=== PATIENT | male | born 1950 | race Caucasian/White ===

== ENCOUNTER 2017-01-02 10:30 | Inpatient (IN) | payer MEDICARE, OTHER ==
[2016-12-30 12:04] LABS: BASOPHILS 0.6 %; BASOPHILS ABSOLUTE 0.05 10/3/uL (0.0-0.16); EOSINOPHILS 0.9 %; EOSINOPHILS ABSOLUTE 0.07 10/3/uL (0.0-0.53); HEMOGLOBIN 14.3 g/dL (13.6-17.8); IMMATURE GRANULOCYTES 0.5 %; IMMATURE GRANULOCYTES ABSOLUTE 0.04 10/3/uL (0.0-0.11); LYMPHOCYTES 34.2 %; LYMPHOCYTES ABSOLUTE 2.64 10/3/uL (0.67-4.30); MEAN CORPUSCULAR HEMOGLOB 31.2 pg (26.0-34.0); MEAN CORPUSCULAR VOLUME 91.5 fL (80-100); MEAN PLATELET VOLUME 10.3 fL (9.2-13.0); MONOCYTES 8.4 %; MONOCYTES ABSOLUTE 0.65 10/3/uL (0.21-1.20); NEUTROPHILS 55.4 %; NEUTROPHILS ABSOLUTE 4.27 10/3/uL (2.02-8.40); RBC DISTRIBUTION WIDTH 12.9 % (12.0-16.0); RED CELL COUNT 4.59 10/6/uL (4.7-6.1); WHITE BLOOD CELLS 7.7 10/3/uL (4.5-10.5)
[2016-12-30 12:05] LABS: MANUAL DIFF NO %; PLATELET COUNT 366 10/3/uL (150-400)
[2016-12-30 12:12] LABS: INTERNATIONAL NORMAL RATI 1.1 UNITS (-); PARTIAL THROMBO TIME 28.2 SEC (22.5-37.2); PROTIME (NOT ORD) 14.3 SEC (12.0-14.5)
[2016-12-30 12:25] LABS: ALBUMIN 3.6 G/DL (3.5-5.0); CALCIUM, SERUM 8.9 MG/DL (8.5-10.4); CHLORIDE, SERUM 105 MMOL/L (96-112); GFR AFRICAN AMERICAN 101 ML/MIN (>=60); GFR NON AFRICAN AMERICAN 87 ML/MIN (>=60); GLOBULIN 3.7 G/DL (2.5-4.1); SGOT(AST) 20 U/L (5-40); SGPT(ALT) 26 U/L (5-65); SODIUM, SERUM 140 MMOL/L (135-148); TOTAL BILIRUBIN 0.4 MG/DL (0-1.2); TOTAL PROTEIN 7.3 G/DL (6.0-8.5)
[2016-12-30 12:26] LABS: ALKALINE PHOSPHATASE 139 U/L (45-117); BUN (BLOOD UREA NITROGEN) 16 MG/DL (6-23); CO2 (CARBON DIOXIDE) 25 MMOL/L (24-34); GLUCOSE, SERUM 113 MG/DL (60-99)
[2016-12-30 12:48] LABS: ASCORBIC ACID (UR NOT ORDER) NEG (NEG); BILIRUBIN, URINE NEGATIVE (NEG); KETONE, URINE NEGATIVE (NEG); LEUKOCYTE ESTERASE(NOT OR NEG (NEG); WBC (NOT ORDERED) (RFLEX) < 1 (0-5)
--- NOTE | ~2017-01-02 | OP ---
Record Of Operation [facility] [address] [place]. [address] NAME: YUE SANDOVAL : 46 STATUS : ADM IN PAT#: [id number] AGE: 66 ADM/REG DATE : 01/02/17 MR#: [id number] REPORT SERV DATE: 01/03/17 DICTATED BY: DUSTIN ROSENBERG DATE: 01/02/17 REPORT STATUS : Draft TRANSCRIBED BY: MODL DATE: 01/02/17 DATE OF PROCEDURE: 01/02/2017 PREOPERATIVE DIAGNOSIS: Left severe shoulder osteoarthritis with subacute displaced surgical neck fracture. POSTOPERATIVE DIAGNOSIS: Left severe shoulder osteoarthritis with subacute displaced surgical neck fracture. PROCEDURE: Left reverse shoulder arthroplasty. SURGEON: Dustin Rosenberg M.D. COMPLICATIONS: None. ANESTHESIA: General endotracheal with regional block. ESTIMATED BLOOD LOSS: 200. FLUIDS: 1700. IMPLANTS: Dahiana Bigliani-Flatow reverse. INDICATIONS: This 66-year-old male is known to me from an ORIF of his distal clavicle. He had a shoulder osteoarthritis. The plan was to do a replacement. He ended up falling and fracturing onto his immobile degenerative shoulder with an oblique displaced surgical neck fracture. We discussed options in this difficult situation including nonoperative treatment which has risk of nonunion, ORIF, total versus reverse. We discussed reverse as a possible one-stage procedure. He verbalized understanding and wished to proceed with operative intervention. DESCRIPTION OF PROCEDURE: The patient was induced in supine position. The left upper extremity was prepped and draped in standard surgical fashion. A time-out protocol was enforced. Ancef was administered. The deltopectoral approach was utilized. His tissues were indurated. We dissected through the subcutaneous down to the cephalic vein. This was mobilized laterally. There was severe scarring and edema throughout the shoulder joint. We carefully lysed adhesions in the subdeltoid plane, released the pectoralis. It was difficult to see the biceps because of the amount of the swollen bursa and subacute fracture response, but we were able to find that and soft tissue tenodesed to the pectoralis. We started out with a lesser tuberosity osteotomy with osteotomes and started releasing the capsule. There was some engagement between shaft and the head, so we could rotate the humeral head, but it was quite difficult and this patient had very large bone spurs and osteophytes on the humeral head. We kept rotating that out with Marycarmen's and used rongeurs. We cleaned out the fracture site with an osteotome and rongeurs, and it was clear that it was going to be very difficult to do an Record Of Operation [facility] [address] [place]. [address] NAME: YUE SANDOVAL : 46 STATUS : ADM IN PAT#: [id number] AGE: 66 ADM/REG DATE : 01/02/17 MR#: [id number] REPORT SERV DATE: 01/03/17 DICTATED BY: DUSTIN ROSENBERG DATE: 01/02/17 REPORT STATUS : Draft TRANSCRIBED BY: MODL DATE: 01/02/17 anatomic total in this circumstance, because the reduction was going to be very difficult of this fracture which had partially healed. We decided to go ahead with a reverse because of his age and the comorbidities including diabetes and surgical neck fracture. We made an entry portal in the humeral head and reamed up to a 13. This made the shaft relatively coaxial. We made a 20-degree retroverted cut and trimmed up the osteophytes. We then had to make extra bone cuts to get access to the glenoid just because of simply the large humeral head and multiple bone spurs. We then gained direct access to the glenoid. The glenoid had a huge osteophyte on the 7 o'clock position. We trimmed that down with osteotomes and rongeurs and ascertained the true mechanical axis. We did some inferior capsular release and some incision of the anterior capsule, but we were less aggressive here in the setting of trauma and especially since we had good access to the glenoid. We used the trabecular metal 15 mm base plate after reaming the glenoid flush and impacted a 40 mm glenosphere. We then turned back to the humeral head. We initially placed the 13 press fit and did a trial reduction, but there were bone spurs and pieces of the humeral head that were blocking the reduction, so we had to clean those out and we prepared to fix the tuberosities as in a fracture. We secured those with number two FiberWire in terms with two inverted-U stitches through the greater tuberosity and the subscap. We made drill holes in the shaft. We impacted slightly deeper the prosthesis and then trialed up to a plus six. This had satisfactory stability. We then repaired all the tuberosities in the manner of [place] and irrigated copiously with pulse lavage and tranexamic acid. Hemovac drain was placed. The wound was closed in multiple layers. The patient tolerated the procedure well, was taken to the PACU in stable condition. POSTOPERATIVE PLAN: Six weeks in a sling, reverse shoulder protocol. LAMONT/SEGUNDO Dustin Rosenberg M.D. / [id number]
[~2017-01-02 10:30] MED LIST: ACET500CAP PO; ADACEL IM; AUG875 PO; AVODART PO; ENDOCET1 TAB PO; FLOMAX4 PO; GLUCOTROL5 PO; GLUMETZA500 MG PO; HALF81 PO; LIQUID TEARS OPH; MAGOX4 PO; MAVIK2 PO; MAVIK4 MG PO; METPAKSF PO; MULTIVIT/MIN PO; NORV5 PO; OTC ANTACID PO; OTC MAGNESIUM PO; PEP20 PO; ROCEPH IM; SYNTHROID175 MCG PO; Z300 PO
[2017-01-03 05:24] LABS: HEMATOCRIT 38.6 % (40.0-51.0); HEMOGLOBIN 12.7 g/dL (13.6-17.8)
[2017-01-03 05:35] LABS: BUN (BLOOD UREA NITROGEN) 15 MG/DL (6-23); CALCIUM, SERUM 8.7 MG/DL (8.5-10.4); CHLORIDE, SERUM 103 MMOL/L (96-112); CO2 (CARBON DIOXIDE) 25 MMOL/L (24-34); CREATININE 0.98 MG/DL (0.70-1.30); GFR AFRICAN AMERICAN 91 ML/MIN (>=60); GFR NON AFRICAN AMERICAN 79 ML/MIN (>=60); GLUCOSE, SERUM 209 MG/DL (60-99); POTASSIUM, SERUM 4.4 MMOL/L (3.5-5.3); SODIUM, SERUM 138 MMOL/L (135-148)
[2017-01-03] MEDS ORDERED: PERCOCET 7.5/321 TAB PO (10:01)
[2017-01-03] MEDS ORDERED: BACTRONASA NAS (10:01)
[2017-01-03] MEDS ORDERED: ASA5GR PO (10:02)
[2017-01-03] MEDS ORDERED: PR25 PO (10:02)
== END 2017-01-03 16:27 | disposition home or self-care (01) | DRG 483 ==
LOC: SDC/OF 10:30 → PACU 20:15 → 3SO 21:44
PROVIDERS: Orthopaedic Surgery Sports Medicine
PROC: 0RRK00Z Replacement of Left Shoulder Joint with Reverse Ball and Socket Synthetic Substitute, Open Approach (ICD-10-PCS; principal; 2017-01-02 12:15)
DX: M19.012 Primary osteoarthritis, left shoulder (principal); I10 Essential (primary) hypertension; N40.0 Benign prostatic hyperplasia without lower urinary tract symptoms
CPT/HCPCS: 36415; 73030-LT; 80048; 80053; 81001; 82962; 85014; 85018; 85025; 85610; 85730; 86850; 86900; 86901; 87641; 88305; 88311; 93005; 97110-GP; 97116-GP; 97161-GP; A9270-GY; C1713; C1776; J0690; J2250; J2270; J2370; J2405; J2710; J2795; J3010; J3370